=== PATIENT | male | born 1945 | race Caucasian/White ===

== ENCOUNTER 2017-09-05 12:03 | Emergency (ER) | payer MEDICARE ==
[2017-09-05 12:08] VITALS: BP 155/86; PULSE 62; RESP 16; TEMP 97.8; O2SAT 98
--- NOTE | 2017-09-05 13:55 | PD ---
HPI Chief Complaint: Pain: Acute or Chronic Time Seen by Provider: 13:41 Travel History International Travel<30 days: No Contact w/Intl Traveler<30days: No Traveled to known affect area: No History of Present Illness HPI 72-year-old male presents to emergency department complaining of right first toe pain for 4 days.. States his pain started 4 days ago and he has tried ibuprofen without relief. States he been traveling on short flights throughout the week but does not remember any trauma. Patient does have a history of a toe fracture 30 years ago that was never corrected. Patient denies any recent significant alcohol intake however, he states that he has been eating a lot more meat than usual. He had an episode of gout approximately one year ago and this pain is similar to before. PFSH Past Medical History Hx Anticoagulant Therapy: Yes (PLAVIX AND ASA) Cardiovascular Problems: Yes (CAD; HTN; 6 STENTS) Social History Tobacco Use: No Allergies-Medications Reported Meds & Prescriptions Reported Meds & Active Scripts Active Indomethacin 50 Mg Cap 50 Mg PO TID 7 Days Take with food, milk, or antacids to decrease stomach adverse effects. Use sparingly Review of Systems Except as stated in HPI: all other systems reviewed are Neg Physical Exam Narrative GENERAL: Well-nourished, well-developed patient. SKIN: Focused skin assessment warm/dry. HEAD: Normocephalic. EYES: No scleral icterus. No injection or drainage. NECK: Supple, trachea midline. No JVD or lymphadenopathy. CARDIOVASCULAR: Regular rate and rhythm without murmurs, gallops, or rubs. RESPIRATORY: Breath sounds equal bilaterally. No accessory muscle use. MUSCULOSKELETAL: No cyanosis, or edema. Right great toe MTP-there is palpation pain with flexion and extension. Neurovascularly intact. No erythema or deformities., BACK: Nontender without obvious deformity. No CVA tenderness. Data Data Last Documented VS Vital Signs Date Time Temp Pulse Resp B/P (MAP) Pulse Ox O2 Delivery O2 Flow Rate FiO2 09/05/17 12:08 97.8 62 16 155/86 (109) 98 Orders Orders Foot, Complete ([id number]) (09/05/17 ) MDM Medical Decision Making Medical Screen Exam Complete: Yes Emergency Medical Condition: Yes Differential Diagnosis Right first toe Gout versus toe fracture versus sialitis Narrative Course 72-year-old male presents to emergency department complaining of right first toe pain for 4 days.. States his pain started 4 days ago and he has tried ibuprofen without relief. States he been traveling on short flights throughout the week but does not remember any trauma. Patient does have a history of a toe fracture 30 years ago that was never corrected. Patient denies any recent significant alcohol intake however, he states that he has been eating a lot more meat than usual. He had an episode of gout approximately one year ago and this pain is similar to before. Vital signs stable His exam demonstrates no crepitus or deformities. Mild erythema of the MTP joint. Imaging study without acute process. Osteoarthritis of the MTP Based off of H&P patient likely has gout. He'll be treated with indomethacin 3 times a day. Advised on taking the minimal amount necessary to relieve his pain. He is to follow up with his primary care physician within 2-3 days. Diagnosis Primary Impression: Gout Qualified Codes: M10.9 - Gout, unspecified Referrals: Primary Care Physician Additional Instructions: Use medications as prescribed. Follow-up with your primary care physician within 2-3 days Scripts Indomethacin (Indomethacin) 50 Mg Cap 50 MG PO TID for 7 Days, CAP 0 Refills Take with food, milk, or antacids to decrease stomach adverse effects. Use sparingly Prov: Palak Cevallos MD 09/05/17 Disposition: 01 DISCHARGE HOME Condition: Stable Inna Correa Sep 05, 2017 13:55
--- NOTE | 2017-09-05 14:29 | RADRPT ---
EXAM DATE/TIME: 09/05/2017 13:21 [facility] COMPARISON: No previous studies available for comparison. INDICATIONS : Right foot pain. Patient complains of right 1st digit redness, pain, and swelling. MEDICAL HISTORY : None. SURGICAL HISTORY : Several heart stents. ENCOUNTER: Initial ACUITY: 4 - 6 days PAIN SCORE: 10/10 LOCATION: Right Foot, Great toe. FINDINGS: 3 views of the right foot demonstrate no fracture or dislocation. There is joint space narrowing with endplate sclerosis and osteophytes at the first metatarsophalangeal joint. Lisfranc joint appears in tact. No radiopaque foreign body is identified. No significant soft tissue abnormality is seen. CONCLUSION: Severe first MTP joint osteoarthritis. Otherwise, no acute finding is identified. Apolinar Carroll MD on September 05, 2017 at 14:26 Board Certified Radiologist. This report was verified electronically.
[2017-09-05] MEDS ORDERED: INDO50CA PO (14:32)
== END 2017-09-05 15:18 | disposition home or self-care (01) ==
LOC: NEPK 12:03
DX: M10.9 Gout, unspecified (principal); M19.071 Primary osteoarthritis, right ankle and foot; I25.10 Atherosclerotic heart disease of native coronary artery without angina pectoris; I10 Essential (primary) hypertension; Z79.02 Long term (current) use of antithrombotics/antiplatelets; Z79.82 Long term (current) use of aspirin
CPT/HCPCS: 73630; 99283